=== PATIENT | male | born 1945 | race Caucasian/White ===

== ENCOUNTER → 2016-03-19 | Outpatient (CLI) | payer BC ==
[~2016-03-19] MED LIST: ALLO300T2 PO; ASPI81TA28 PO; ATOR-24 PO; CHOL1TAB46 PO; CYAN100020 PO; DONE10TA12 PO; DUTA0.5C PO; ESCI1TAB6 PO; MAGN400T6 PO; MULT-884 PO; NMN10 PO; OMEG10007 PO; RAPAFLO PO
== END | disposition home or self-care (01) ==
LOC: C.LABSPEC 11:15
PROVIDERS: ATTEND Internal Medicine
DX: N39.0 Urinary tract infection, site not specified (principal)

== ENCOUNTER → 2016-03-23 | Outpatient (CLI) | payer BC ==
--- NOTE | 2016-03-23 10:51 | DIAGNOSTIC IMAGING REPORT ---
KUB CLINICAL HISTORY: Hematuria. FINDINGS: 2 AP abdominal radiographs are obtained. No prior studies are available for comparison at the time of dictation. There is a nonobstructed abdominal bowel gas pattern. Moderate colonic fecal retention is seen. No calcifications are seen projecting over either kidney. There is an indeterminant 8 mm calcification the left hemipelvis. Additional pelvic calcifications likely represent phleboliths. Moderate lumbosacral spondylosis is observed. IMPRESSION: 1. Nonobstructed abdominal bowel gas pattern noting moderate constipation. 2. An 8 mm calcification projects over the left hemipelvis. This could represent a distal ureteral calculus or a large phlebolith. Consider correlation with a renal ultrasound to assess for associated left-sided hydronephrosis. 3. Additional pelvic base calcifications likely represent phleboliths. Electronically signed by: Zaire Joyce M.D. 03/23/2016 10:49 AM Dictated Date/Time: 03/23/2016 10:35 AM
[2016-03-23 18:48] LABS: BLOOD UREA NITROGEN 25 mg/dl (7-18); BUN/CREATININE RATIO 19.2 (10-20)
== END | disposition home or self-care (01) ==
LOC: C.RAD 10:12
PROVIDERS: ATTEND Urology
DX: R31.0 Gross hematuria (principal); K59.00 Constipation, unspecified

== ENCOUNTER → 2016-03-25 | Outpatient (CLI) | payer BC ==
--- NOTE | 2016-03-25 14:03 | DIAGNOSTIC IMAGING REPORT ---
ABDOMEN AND PELVIS CT EXAMINATION PRE AND POST INTRAVENOUS CONTRAST CT DOSE: 1759.86 mGycm HISTORY: Hematuria HEMATURIA TECHNIQUE: Multiaxial CT images of the abdomen and pelvis were performed pre and post intravenous contrast enhancement. COMPARISON STUDY: None. FINDINGS: Lung bases are clear. Liver is uniform throughout. Spleen is unremarkable. The adrenal glands are within normal limits. Kidneys enhance uniformly. There is no evidence renal mass or hydronephrosis. There are several very small parapelvic cysts bilaterally. There is a 4 mm too small to quantify density lower aspect left kidney in its anterior pole. This may represent a small exophytic cyst but again is too small to quantify. The ureters normal in course and caliber. Bladder is midline. It enhances appropriately. There is mild prosthetic enlargement. There is no significant abdominal pelvic or inguinal adenopathy. The appendix is normal. There is atherosclerotic change and ectasia of the abdominal and pelvic arterial vasculature. IMPRESSION: 1. Negative study of the abdomen and pelvis. 2. 4 mm too small to quantify hypodensity lower pole left kidney. A [address] of the kidneys follow-up is suggested Electronically signed by: Brian Escobedo M.D. 03/25/2016 2:02 PM Dictated Date/Time: 03/25/2016 1:59 PM
== END | disposition home or self-care (01) ==
LOC: C.CTS 13:13
PROVIDERS: ATTEND Urology
DX: R31.0 Gross hematuria (principal)

== ENCOUNTER → 2016-07-20 | Outpatient (CLI) | payer OTHER, BC | END | disposition home or self-care (01) | LOC: C.LABSPEC 14:57 | PROVIDERS: ATTEND Internal Medicine | DX: N39.0 Urinary tract infection, site not specified (principal) ==

== ENCOUNTER → 2016-12-13 | Outpatient (CLI) | payer BC ==
--- NOTE | 2016-12-14 11:30 | EEG Procedure Note ---
EEG Procedure Note Date of Service Dec 13, 2016. Start / End Times Start Time: 2:22 PM End Time: 2:42 PM Referring Physician Smooth Payton History This is a 71-year-old male with an episode of passing out concern for possible seizure. EEG for further evaluation of possible seizure etiology. Home Medication List Scheduled Allopurinol (Zyloprim), 300 MG PO DAILY Aspirin (Aspirin Ec), 81 MG PO HS Atorvastatin (Lipitor), 40 MG PO HS Cholecalciferol (Vitamin D3), 5,000 UNITS PO DAILY Cyanocobalamin (Vitamin B12), 2,000 MCG PO DAILY Donepezil Hydrochloride (Aricept), 23 MG PO HS Dutasteride (Avodart), 0.5 MG PO QPM Escitalopram Oxalate (Lexapro), 5 MG PO DAILY Fish Oil (Hudson-3), 1 CAP PO DAILY Magnesium Oxide (Mag-Ox), 400 MG PO DAILY Memantine (Namenda), 10 MG PO BID Multiple Vitamin (Multi Vitamin Daily), 1 TAB PO DAILY [Rapaflo], 1 CAP PO HS Description This is a 21 electrode EEG with a single channel dedicated to limited EKG. The electrodes were placed in accordance with the International 10-20 system. At the start of the recording the patient was in an awake state. Background was well organized and composed of symmetric mixed alpha and beta frequencies. There was a symmetric well-formed moderate amplitude 8-9 Hz posterior dominant rhythm that was reactive to eye opening and closure. Hyperventilation and Intermittent photic stimulation were not done. Drowsiness was indicated by loss of muscle artifact and slowing of the background rhythm. There was no sleep transients. Interpretation This is a normal awake and drowsy routine EEG. There was no electrographic seizures or epileptiform discharges. Clinical Correlation A normal EEG does not rule out epilepsy if there is a strong clinical suspicion.
--- NOTE | 2016-12-24 07:05 | CODING QUERY NO DIAGNOSIS ---
: 1945 TREATMENT RENDERED WITHOUT A DIAGNOSIS To promote full compliance with coding requirements relating to patient care, physician participation is requested in all cases of subsurface augmentee elint operator uncertainty. Please assist us with providing a diagnosis/symptom for the test(s) below: A diagnosis/symptom was not documented on your Order. A valid diagnosis/symptom is required to bill all insurances. Please remember that we are unable to code a diagnosis of rule out, probable, possible, questionable, or suspected. Tests that require a diagnosis: DOS: 12/13/16 * EEG DIAGNOSIS: Provider Signature: Date: Thank you Violet Nuñez Health Information Management Once completed, please kindly fax back to [phone] For questions please call [phone]
== END | disposition home or self-care (01) ==
LOC: C.NEUR 14:30
PROVIDERS: ATTEND Internal Medicine
DX: R56.9 Unspecified convulsions (principal)